=== PATIENT | male | born 1965 | race Caucasian/White ===

== ENCOUNTER 2018-07-29 06:33 | Inpatient (IN) ==
[2018-07-29 07:11] LABS: Basophils # 0.1 10*3/uL (0.0-0.2); Basophils % 0.3 % (0.0-0.8); Hematocrit 47.1 VOL% (42.0-52.0); Hemoglobin 16.8 GM/DL (14.0-18.0); Immature Granulocytes % 0.9 %; Immature Granulocytes Absolute 0.26 #; Lymphocytes # 1.1 10*3/uL (1.4-4.0); Lymphocytes % 3.8 % (21.2-54.2); Mean Corpuscular HGB Conc 35.7 GM/DL (32-36); Mean Corpuscular Hemoglobin 32 PG (27-34); Mean Corpuscular Volume 88.9 FL (87-102); Mean Platelet Volume 9.7 FL (9.6-12.0); Monocytes # 1.9 10*3/uL (0.11-0.8); Monocytes % 6.8 % (1.7-12.7); Neutrophils # 24.3 10*3/uL (1.4-7.4); Neutrophils % 88.2 % (38.7-73.9); Platelet Count 231 T/CUMM (130-400); Red Cell Distribution Width 12.5 % (9.3-17.3); White Blood Count 27.5 T/CUMM (4-12)
[2018-07-29 07:15] LABS: PT Patient Result 10.3 SECS; Partial Thromboplastin Time 25.2 SECS (0-40)
[2018-07-29] MEDS ORDERED: SODIUM CHLORIDE 0.9% 1,000 ML IV STA (07:26)
[2018-07-29 07:31] LABS: Albumin 3.8 G/DL (3.4-5.0); Bilirubin,Total 2.4 MG/DL (0.2-1.0); Calcium 8.8 MG/DL (8.5-10.1); Osmolality,Calculated 282.4 MOS/KG (273-304); Potassium 3.8 MMOL/L (3.5-5.1); Total Protein 7.9 G/DL (6.4-8.3)
[2018-07-29 07:32] LABS: Band Neutrophils 5 % (0-10); Hypochromasia 1+; Lactic Acid 2.4 MMOL/L (0.4-2.0); Lymphocytes 4 % (20-55); Platelet Estimate Adequate; Segmented Neutrophils 83 % (50-85); Total Cells Counted 100
[2018-07-29] MEDS ORDERED: SODIUM CHLORIDE 0.9% 3,550 ML IV ONE (08:08)
[2018-07-29] MEDS ORDERED: PIPERACILLIN/TAZOBACTAM 3,375 MG in SODIUM CHLORIDE 0.9% 100 ML IV SCH (08:30)
[2018-07-29 08:45] LABS: Apearance,Urine Slightly Hazy (Clear); Bilirubin,Urine Negative (Negative); Blood, Urine Negative (Negative); Glucose,Urine (UA) Negative (Negative); Ketones,Urine Negative (Negative); Mucus,Urine Many /LPF (Occasional); Nitrite,Urine Negative (Negative); Protein,Urine Negative; RBC,Urine <1 /HPF (0-4); Urine Color Amber (Yellow); Urine Specific Gravity 1.027 (1.001-1.035); Urine Urobilinogen < 2.0 EU/DL (0.2-1.0)
[2018-07-29] MEDS ORDERED: PROMETHAZINE 25 MG/1 ML VIAL IM PRN (09:48)
[2018-07-29] MEDS ORDERED: ACETAMINOPHEN 325 MG TABLET PO PRN (09:48)
[2018-07-29] MEDS ORDERED: ONDANSETRON 4 MG/2 ML VIAL IV PRN (09:48)
[2018-07-29] MEDS: SODIUM CHLORIDE 0.9% 1,000 ML IV SCH (13:08)
[2018-07-29] MEDS: VANCOMYCIN INJ 2,000 MG in SODIUM CHLORIDE 0.9% 500 ML IV SCH ×2 (13:09→22:08)
[2018-07-29] MEDS: PANTOPRAZOLE 40 MG TABLET PO SCH (15:43)
[2018-07-29] MEDS: cefTRIAXone 2,000 MG in SYRINGE 1 EACH IV SCH (15:43)
[2018-07-29] MEDS: AMPICILLIN INJ 2,000 MG in SODIUM CHLORIDE 0.9% 100 ML IV SCH (20:13)
[2018-07-29] MEDS: ENOXAPARIN 40 MG/0.4 ML SYRINGE SUBCUT SCH (20:16)
[2018-07-30] MEDS: cefTRIAXone 2,000 MG in SYRINGE 1 EACH IV SCH ×2 (03:28→14:53)
[2018-07-30] MEDS: AMPICILLIN INJ 2,000 MG in SODIUM CHLORIDE 0.9% 100 ML IV SCH ×3 (04:31→14:21)
[2018-07-30 05:43] LABS: Basophils # 0.1 10*3/uL (0.0-0.2); Basophils % 0.4 % (0.0-0.8); Eosinophils # 0.5 10*3/uL (0.0-0.87); Eosinophils % 2.7 % (0.00-10.9); Hematocrit 44.3 VOL% (42.0-52.0); Immature Granulocytes % 0.4 %; Immature Granulocytes Absolute 0.07 #; Lymphocytes # 2.5 10*3/uL (1.4-4.0); Mean Corpuscular HGB Conc 33.9 GM/DL (32-36); Mean Corpuscular Hemoglobin 32 PG (27-34); Mean Corpuscular Volume 93.9 FL (87-102); Mean Platelet Volume 9.5 FL (9.6-12.0); Monocytes # 1.1 10*3/uL (0.11-0.8); Monocytes % 6.7 % (1.7-12.7); Neutrophils # 12.3 10*3/uL (1.4-7.4); Neutrophils % 74.8 % (38.7-73.9); Platelet Count 175 T/CUMM (130-400); Red Blood Count 4.72 MC/CUMM (3.8-5.5); Red Cell Distribution Width 12.4 % (9.3-17.3); White Blood Count 16.5 T/CUMM (4-12)
[2018-07-30 05:58] LABS: Calcium 7.9 MG/DL (8.5-10.1); Osmolality,Calculated 280.1 MOS/KG (273-304); Potassium 4.2 MMOL/L (3.5-5.1)
[2018-07-30 06:01] LABS: Albumin 2.9 G/DL (3.4-5.0); Bilirubin,Total 1.2 MG/DL (0.2-1.0); Calcium 8.1 MG/DL (8.5-10.1); Osmolality,Calculated 282.1 MOS/KG (273-304); Potassium 4.2 MMOL/L (3.5-5.1); Risk Ratio 2.87; Total Protein 6.7 G/DL (6.4-8.3)
[2018-07-30] MEDS: VANCOMYCIN INJ 2,000 MG in SODIUM CHLORIDE 0.9% 500 ML IV SCH ×2 (06:51→15:07)
[2018-07-30] MEDS: SODIUM CHLORIDE 0.9% 1,000 ML IV SCH ×4 (06:54→19:00)
[2018-07-30 12:45] LABS: Appearance,CSF Clear; Lymphocytes,CSF 83 %; Monocytes,CSF 11 %; Neutrophils,CSF 6 %; Red Blood Cell,CSF < 1 C/CUMM; White Blood Cell,CSF 17 C/CUMM
[2018-07-30] MEDS: CHOLECALCIFEROL 1,000 UNIT TABLET PO SCH (14:52)
[2018-07-30] MEDS: FLUTICASONE 50 MCG NASAL SPRAY 16 GM BOTTLE BOTH NARES SCH (14:52)
[2018-07-30] MEDS: CETIRIZINE 10 MG TABLET PO SCH (14:53)
[2018-07-30] MEDS: MULTIVITAMIN (CENTRUM) TABLET PO SCH (14:53)
[2018-07-30] MEDS: PANTOPRAZOLE 40 MG TABLET PO SCH (14:53)
[2018-07-30] MEDS: MONTELUKAST 10 MG TABLET PO SCH ×2 (14:54→20:29)
[2018-07-30] MEDS: AMPICILLIN/SULBACTAM 3,000 MG in SODIUM CHLORIDE 0.9% 100 ML IV SCH ×2 (16:49→21:57)
[2018-07-30] MEDS: ACYCLOVIR INJ 1,250 MG in SODIUM CHLORIDE 0.9% 250 ML IV SCH (18:15)
[2018-07-30] MEDS: ACETAMINOPHEN/CODEINE 300-30 MG TABLET PO PRN (20:28)
[2018-07-30] MEDS: ENOXAPARIN 40 MG/0.4 ML SYRINGE SUBCUT SCH (20:29)
[2018-07-31] MEDS: ACYCLOVIR INJ 1,250 MG in SODIUM CHLORIDE 0.9% 250 ML IV SCH ×3 (01:33→16:27)
[2018-07-31] MEDS: AMPICILLIN/SULBACTAM 3,000 MG in SODIUM CHLORIDE 0.9% 100 ML IV SCH ×3 (04:13→21:24)
[2018-07-31 05:22] LABS: Basophils # 0.1 10*3/uL (0.0-0.2); Basophils % 0.5 % (0.0-0.8); Eosinophils # 0.8 10*3/uL (0.0-0.87); Eosinophils % 7.3 % (0.00-10.9); Hematocrit 39.8 VOL% (42.0-52.0); Hemoglobin 13.7 GM/DL (14.0-18.0); Immature Granulocytes % 0.3 %; Immature Granulocytes Absolute 0.03 #; Lymphocytes # 2.7 10*3/uL (1.4-4.0); Lymphocytes % 26.5 % (21.2-54.2); Mean Corpuscular HGB Conc 34.4 GM/DL (32-36); Mean Corpuscular Hemoglobin 32 PG (27-34); Mean Corpuscular Volume 91.7 FL (87-102); Mean Platelet Volume 10.4 FL (9.6-12.0); Monocytes % 9.6 % (1.7-12.7); Neutrophils # 5.7 10*3/uL (1.4-7.4); Neutrophils % 55.8 % (38.7-73.9); Platelet Count 174 T/CUMM (130-400); Red Blood Count 4.34 MC/CUMM (3.8-5.5); Red Cell Distribution Width 12.5 % (9.3-17.3); White Blood Count 10.2 T/CUMM (4-12)
[2018-07-31 05:53] LABS: Calcium 7.9 MG/DL (8.5-10.1); Osmolality,Calculated 286.7 MOS/KG (273-304); Potassium 4.3 MMOL/L (3.5-5.1)
[2018-07-31] MEDS: SODIUM CHLORIDE 0.9% 1,000 ML IV SCH ×2 (06:21→16:07)
[2018-07-31] MEDS: CETIRIZINE 10 MG TABLET PO SCH (08:34)
[2018-07-31] MEDS: MONTELUKAST 10 MG TABLET PO SCH ×2 (08:34→20:32)
[2018-07-31] MEDS: PANTOPRAZOLE 40 MG TABLET PO SCH (08:34)
[2018-07-31] MEDS: FLUTICASONE 50 MCG NASAL SPRAY 16 GM BOTTLE BOTH NARES SCH (08:34)
[2018-07-31] MEDS: MULTIVITAMIN (CENTRUM) TABLET PO SCH (08:34)
[2018-07-31] MEDS: CHOLECALCIFEROL 1,000 UNIT TABLET PO SCH (08:34)
[2018-07-31] MEDS ORDERED: KETOROLAC 30 MG/1 ML VIAL IV ONE (10:57)
[2018-07-31] MEDS ORDERED: METHOCARBAMOL 750 MG TABLET PO PRN (10:58)
[2018-07-31] MEDS: IBUPROFEN 800 MG TABLET PO SCH ×2 (11:15→20:31)
[2018-07-31] MEDS: ENOXAPARIN 40 MG/0.4 ML SYRINGE SUBCUT SCH (20:32)
[2018-08-01] MEDS: SODIUM CHLORIDE 0.9% 1,000 ML IV SCH ×3 (00:10→15:35)
[2018-08-01] MEDS: ACYCLOVIR INJ 1,250 MG in SODIUM CHLORIDE 0.9% 250 ML IV SCH ×3 (01:09→17:19)
[2018-08-01] MEDS: AMPICILLIN/SULBACTAM 3,000 MG in SODIUM CHLORIDE 0.9% 100 ML IV SCH ×4 (03:50→20:04)
[2018-08-01 06:07] LABS: Basophils # 0.1 10*3/uL (0.0-0.2); Basophils % 0.8 % (0.0-0.8); Eosinophils # 0.9 10*3/uL (0.0-0.87); Eosinophils % 11.9 % (0.00-10.9); Hematocrit 39.8 VOL% (42.0-52.0); Hemoglobin 13.7 GM/DL (14.0-18.0); Immature Granulocytes % 0.4 %; Immature Granulocytes Absolute 0.03 #; Lymphocytes # 2.3 10*3/uL (1.4-4.0); Lymphocytes % 30.4 % (21.2-54.2); Mean Corpuscular HGB Conc 34.4 GM/DL (32-36); Mean Corpuscular Hemoglobin 31 PG (27-34); Mean Corpuscular Volume 90.7 FL (87-102); Mean Platelet Volume 10.2 FL (9.6-12.0); Monocytes # 0.6 10*3/uL (0.11-0.8); Monocytes % 8.3 % (1.7-12.7); Neutrophils # 3.7 10*3/uL (1.4-7.4); Neutrophils % 48.2 % (38.7-73.9); Platelet Count 206 T/CUMM (130-400); Red Blood Count 4.39 MC/CUMM (3.8-5.5); Red Cell Distribution Width 12.3 % (9.3-17.3); White Blood Count 7.6 T/CUMM (4-12)
[2018-08-01 06:31] LABS: Calcium 7.9 MG/DL (8.5-10.1); Osmolality,Calculated 285.7 MOS/KG (273-304); Potassium 3.8 MMOL/L (3.5-5.1)
[2018-08-01 06:32] LABS: Anisocytosis Slight; Eosinophils 13 % (0-10); Lymphocytes 31 % (20-55); Macrocytosis Slight; Platelet Estimate Normal; Segmented Neutrophils 50 % (50-85); Total Cells Counted 100
[2018-08-01] MEDS: CHOLECALCIFEROL 1,000 UNIT TABLET PO SCH (08:01)
[2018-08-01] MEDS: CETIRIZINE 10 MG TABLET PO SCH (08:01)
[2018-08-01] MEDS: MONTELUKAST 10 MG TABLET PO SCH ×2 (08:01→20:05)
[2018-08-01] MEDS: MULTIVITAMIN (CENTRUM) TABLET PO SCH (08:01)
[2018-08-01] MEDS: IBUPROFEN 800 MG TABLET PO SCH ×2 (08:02→20:05)
[2018-08-01] MEDS: FLUTICASONE 50 MCG NASAL SPRAY 16 GM BOTTLE BOTH NARES SCH (08:02)
[2018-08-01] MEDS: PANTOPRAZOLE 40 MG TABLET PO SCH (08:02)
[2018-08-01] MEDS: ENOXAPARIN 40 MG/0.4 ML SYRINGE SUBCUT SCH (20:05)
[2018-08-02] MEDS: ACYCLOVIR INJ 1,250 MG in SODIUM CHLORIDE 0.9% 250 ML IV SCH ×3 (01:04→16:03)
[2018-08-02] MEDS: ACETAMINOPHEN/CODEINE 300-30 MG TABLET PO PRN ×2 (03:05→09:24)
[2018-08-02] MEDS: AMPICILLIN/SULBACTAM 3,000 MG in SODIUM CHLORIDE 0.9% 100 ML IV SCH ×3 (04:02→13:49)
[2018-08-02 05:52] LABS: Basophils # 0.1 10*3/uL (0.0-0.2); Basophils % 0.7 % (0.0-0.8); Eosinophils % 12.6 % (0.00-10.9); Hematocrit 41.8 VOL% (42.0-52.0); Hemoglobin 14.5 GM/DL (14.0-18.0); Immature Granulocytes % 0.4 %; Immature Granulocytes Absolute 0.03 #; Lymphocytes # 2.4 10*3/uL (1.4-4.0); Lymphocytes % 29.3 % (21.2-54.2); Mean Corpuscular HGB Conc 34.7 GM/DL (32-36); Mean Corpuscular Hemoglobin 31 PG (27-34); Mean Corpuscular Volume 90.1 FL (87-102); Mean Platelet Volume 9.7 FL (9.6-12.0); Monocytes # 0.7 10*3/uL (0.11-0.8); Monocytes % 8.2 % (1.7-12.7); Neutrophils % 48.8 % (38.7-73.9); Platelet Count 228 T/CUMM (130-400); Red Blood Count 4.64 MC/CUMM (3.8-5.5); Red Cell Distribution Width 12.3 % (9.3-17.3); White Blood Count 8.3 T/CUMM (4-12)
[2018-08-02 06:09] LABS: Albumin 2.8 G/DL (3.4-5.0); Bilirubin,Total 1.1 MG/DL (0.2-1.0); Calcium 8.3 MG/DL (8.5-10.1); Total Protein 6.4 G/DL (6.4-8.3)
[2018-08-02 06:15] LABS: Eosinophils 15 % (0-10); Hypochromasia 1+; Lymphocytes 25 % (20-55); Platelet Estimate Adequate; Segmented Neutrophils 55 % (50-85); Total Cells Counted 100
[2018-08-02] MEDS: IBUPROFEN 800 MG TABLET PO SCH ×2 (09:22→20:23)
[2018-08-02] MEDS: CETIRIZINE 10 MG TABLET PO SCH (09:22)
[2018-08-02] MEDS: MULTIVITAMIN (CENTRUM) TABLET PO SCH (09:23)
[2018-08-02] MEDS: PANTOPRAZOLE 40 MG TABLET PO SCH (09:23)
[2018-08-02] MEDS: MONTELUKAST 10 MG TABLET PO SCH ×2 (09:23→20:23)
[2018-08-02] MEDS: CHOLECALCIFEROL 1,000 UNIT TABLET PO SCH (09:23)
[2018-08-02] MEDS: FLUTICASONE 50 MCG NASAL SPRAY 16 GM BOTTLE BOTH NARES SCH (09:27)
[2018-08-02] MEDS: AMOXICILLIN/CLAV 875 MG TABLET PO SCH ×2 (14:05→20:23)
[2018-08-02] MEDS: SODIUM CHLORIDE 0.9% 1,000 ML IV SCH (20:22)
[2018-08-02] MEDS: ENOXAPARIN 40 MG/0.4 ML SYRINGE SUBCUT SCH (20:23)
[2018-08-03] MEDS: ACYCLOVIR INJ 1,250 MG in SODIUM CHLORIDE 0.9% 250 ML IV SCH ×2 (00:33→08:11)
[2018-08-03] MEDS: ACETAMINOPHEN/CODEINE 300-30 MG TABLET PO PRN (06:17)
[2018-08-03] MEDS: MONTELUKAST 10 MG TABLET PO SCH (08:11)
[2018-08-03] MEDS: CHOLECALCIFEROL 1,000 UNIT TABLET PO SCH (08:11)
[2018-08-03] MEDS: IBUPROFEN 800 MG TABLET PO SCH (08:11)
[2018-08-03] MEDS: CETIRIZINE 10 MG TABLET PO SCH (08:11)
[2018-08-03] MEDS: AMOXICILLIN/CLAV 875 MG TABLET PO SCH (08:11)
[2018-08-03] MEDS: PANTOPRAZOLE 40 MG TABLET PO SCH (08:11)
[2018-08-03] MEDS: MULTIVITAMIN (CENTRUM) TABLET PO SCH (08:11)
[2018-08-03] MEDS: FLUTICASONE 50 MCG NASAL SPRAY 16 GM BOTTLE BOTH NARES SCH (08:18)
[2018-08-03 12:23] VITALS: BP 128/74
[2018-08-04 18:31] LABS: West Nile Virus Ab, IgG, CSF Negative (Negative); West Nile Virus Ab, IgM, CSF Negative (Negative)
== END 2018-08-03 17:25 | disposition home or self-care (01) | DRG 871 ==
LOC: N.ED 06:33 → N.EDINP 10:27 → N.2W 11:50 → N.5E 13:03
PROVIDERS: ADMIT Internal Medicine; ATTEND Internal Medicine

== ENCOUNTER 2021-04-01 06:10 | Inpatient (IN) ==
[2021-04-01] MEDS ORDERED: MAGNESIUM SULF RIDER 2 GM/50 ML PREMIX IV PRN ×3 (06:35→17:10)
[2021-04-01] MEDS ORDERED: ASPIRIN 325 MG TABLET PO ONE (06:35)
[2021-04-01] MEDS ORDERED: POTASSIUM CHLORIDE RIDER 10 MEQ/100 ML PREMIX IV PRN ×3 (06:35→17:10)
[2021-04-01] MEDS ORDERED: diphenhydrAMINE CAP 50 MG CAPSULE PO ONE (06:35)
[2021-04-01] MEDS ORDERED: DIAZEPAM 5 MG TABLET PO ONE (06:35)
[2021-04-01] MEDS ORDERED: SIMETHICONE CHEW 125 MG TABLET PO PRN (07:15)
[2021-04-01] MEDS ORDERED: BISACODYL 5 MG TABLET PO PRN (07:15)
[2021-04-01] MEDS ORDERED: diphenhydrAMINE CAP 25 MG CAPSULE PO PRN (07:15)
[2021-04-01] MEDS ORDERED: ZALEPLON 5 MG CAPSULE PO PRN (07:15)
[2021-04-01] MEDS ORDERED: MAGNESIUM SULF RIDER 4 GM/100 ML PREMIX IV PRN (07:15)
[2021-04-01] MEDS ORDERED: ONDANSETRON 4 MG/2 ML VIAL IV PRN (07:15)
[2021-04-01] MEDS ORDERED: DOCUSATE SODIUM 100 MG CAPSULE PO PRN (07:15)
[2021-04-01] MEDS ORDERED: guaiFENesin/DM ER 600-30 MG TABLET PO PRN (07:15)
[2021-04-01] MEDS ORDERED: MORPHINE 4 MG/1 ML VIAL IV PRN (07:15)
[2021-04-01 07:25] LABS: Basophils # 0.1 10*3/uL (0.0-0.2); Basophils % 0.9 % (0.0-0.8); Eosinophils # 1.2 10*3/uL (0.0-0.87); Eosinophils % 14.5 % (0.00-10.9); Hematocrit 46.4 VOL% (42.0-52.0); Hemoglobin 15.7 GM/DL (14.0-18.0); Immature Granulocytes % 0.4 %; Immature Granulocytes Absolute 0.03 #; Lymphocytes # 2.3 10*3/uL (1.4-4.0); Lymphocytes % 26.9 % (21.2-54.2); Mean Corpuscular HGB Conc 33.8 GM/DL (32-36); Mean Corpuscular Volume 90.3 FL (87-102); Mean Platelet Volume 10.4 FL (9.6-12.0); Monocytes % 7.7 % (1.7-12.7); Neutrophils % 49.6 % (38.7-73.9); Platelet Count 228 T/CUMM (130-400); Red Blood Count 5.14 MC/CUMM (3.8-5.5); Red Cell Distribution Width 12.3 % (9.3-17.3); White Blood Count 8.4 T/CUMM (4-12)
[2021-04-01 07:36] LABS: PT Patient Result 11.4 SECS (10.5-12.0)
[2021-04-01 07:44] LABS: Calcium 7.5 MG/DL (8.5-10.1); Potassium 4.1 MMOL/L (3.5-5.1); Total Protein 6.8 G/DL (6.4-8.2)
[2021-04-01 07:45] LABS: Eosinophils 16 % (0-10); Lymphocytes 24 % (20-55); Platelet Estimate Adequate; Segmented Neutrophils 54 % (50-85); Total Cells Counted 100
[2021-04-01] MEDS ORDERED: methylPREDNISolone SOD SUC 40 MG/1 ML VIAL IV SCH (08:30)
[2021-04-01] MEDS ORDERED: PANTOPRAZOLE 40 MG TABLET PO SCH (09:00)
[2021-04-01] MEDS: methylPREDNISolone SOD SUC 40 MG/1 ML VIAL IV SCH ×2 (12:02→22:24)
[2021-04-01] MEDS: MONTELUKAST 10 MG TABLET PO SCH (12:03)
[2021-04-01] MEDS: ENOXAPARIN 40 MG/0.4 ML SYRINGE SUBCUT SCH (12:03)
[2021-04-01] MEDS: SODIUM CHLORIDE 0.9% 1,000 ML IV SCH (12:13)
[2021-04-01] MEDS ORDERED: ALBUTEROL/IPRATROPIUM 3 ML NEB RESP TX SCH (13:00)
[2021-04-01] MEDS: IPRATROPIUM 500 MCG/2.5 ML NEB RESP TX SCH ×2 (13:15→19:36)
[2021-04-01] MEDS: ACETAMINOPHEN 325 MG TABLET PO PRN (19:50)
[2021-04-01] MEDS: PANTOPRAZOLE 40 MG TABLET PO SCH (22:23)
[2021-04-02] MEDS: IPRATROPIUM 500 MCG/2.5 ML NEB RESP TX SCH ×4 (00:07→19:40)
[2021-04-02] MEDS: methylPREDNISolone SOD SUC 40 MG/1 ML VIAL IV SCH ×3 (04:05→20:13)
[2021-04-02 04:45] LABS: Calcium 8.7 MG/DL (8.5-10.1); Osmolality,Calculated 285.3 MOS/KG (273-304); Potassium 4.7 MMOL/L (3.5-5.1)
[2021-04-02 04:50] LABS: Calcium 8.9 MG/DL (8.5-10.1); Osmolality,Calculated 286.3 MOS/KG (273-304); Potassium 4.3 MMOL/L (3.5-5.1); VLDL CHOLESTEROL 16.4 MG/DL
[2021-04-02 06:52] LABS: Basophils % 0.2 % (0.0-0.8); Hematocrit 49.6 VOL% (42.0-52.0); Hemoglobin 16.9 GM/DL (14.0-18.0); Immature Granulocytes % 0.7 %; Immature Granulocytes Absolute 0.11 #; Lymphocytes # 1.4 10*3/uL (1.4-4.0); Lymphocytes % 8.8 % (21.2-54.2); Mean Corpuscular HGB Conc 34.1 GM/DL (32-36); Mean Corpuscular Volume 91.5 FL (87-102); Mean Platelet Volume 10.8 FL (9.6-12.0); Monocytes % 0.6 % (1.7-12.7); Neutrophils % 89.7 % (38.7-73.9); Platelet Count 289 T/CUMM (130-400); Red Blood Count 5.42 MC/CUMM (3.8-5.5); White Blood Count 15.4 T/CUMM (4-12)
[2021-04-02] MEDS ORDERED: ASPIRIN 325 MG TABLET PO ONE (09:00)
[2021-04-02] MEDS: SODIUM CHLORIDE 0.9% 1,000 ML IV SCH (09:02)
[2021-04-02] MEDS ORDERED: HEPARIN/NACL 0.9% 2 UNITS/ML 2,000 UNIT/1,000 ML BAG IV ONE (09:36)
[2021-04-02] MEDS ORDERED: LIDOCAINE 1% 20 ML VIAL ONE (09:36)
[2021-04-02] MEDS ORDERED: DIAZEPAM 5 MG TABLET PO ONE (10:00)
[2021-04-02] MEDS ORDERED: diphenhydrAMINE CAP 25 MG CAPSULE PO PRN (10:00)
[2021-04-02] MEDS ORDERED: MIDAZOLAM 2 MG/2 ML VIAL ONE (10:22)
[2021-04-02] MEDS ORDERED: fentaNYL 100 MCG/2 ML VIAL ONE (10:22)
[2021-04-02] MEDS ORDERED: NITROGLYCERIN SL 0.4 MG TABLET SL PRN (11:50)
[2021-04-02] MEDS ORDERED: ACETAMINOPHEN/CODEINE 300-30 MG TABLET PO PRN (11:50)
[2021-04-02] MEDS: ENOXAPARIN 40 MG/0.4 ML SYRINGE SUBCUT SCH (12:01)
[2021-04-02] MEDS: ACETAMINOPHEN 325 MG TABLET PO PRN (12:01)
[2021-04-02] MEDS: PANTOPRAZOLE 40 MG TABLET PO SCH ×2 (12:01→20:12)
[2021-04-02] MEDS: MONTELUKAST 10 MG TABLET PO SCH (12:01)
[2021-04-03] MEDS: IPRATROPIUM 500 MCG/2.5 ML NEB RESP TX SCH ×3 (01:00→07:00)
[2021-04-03] MEDS: methylPREDNISolone SOD SUC 40 MG/1 ML VIAL IV SCH ×2 (04:25→12:39)
[2021-04-03 06:34] LABS: Basophils % 0.1 % (0.0-0.8); Hematocrit 47.5 VOL% (42.0-52.0); Hemoglobin 16.1 GM/DL (14.0-18.0); Immature Granulocytes % 1.1 %; Immature Granulocytes Absolute 0.27 #; Lymphocytes # 1.4 10*3/uL (1.4-4.0); Lymphocytes % 5.7 % (21.2-54.2); Mean Corpuscular HGB Conc 33.9 GM/DL (32-36); Mean Corpuscular Volume 90.6 FL (87-102); Mean Platelet Volume 10.2 FL (9.6-12.0); Monocytes % 2.3 % (1.7-12.7); Neutrophils % 90.8 % (38.7-73.9); Platelet Count 266 T/CUMM (130-400); Red Blood Count 5.24 MC/CUMM (3.8-5.5); Red Cell Distribution Width 12.2 % (9.3-17.3); White Blood Count 24.9 T/CUMM (4-12)
[2021-04-03 06:57] LABS: Lymphocytes 7 % (20-55); Platelet Estimate Adequate; Segmented Neutrophils 87 % (50-85); Total Cells Counted 100
[2021-04-03 07:07] LABS: Calcium 8.5 MG/DL (8.5-10.1); Potassium 3.9 MMOL/L (3.5-5.1)
[2021-04-03] MEDS: PANTOPRAZOLE 40 MG TABLET PO SCH (08:53)
[2021-04-03] MEDS: MONTELUKAST 10 MG TABLET PO SCH (08:53)
[2021-04-03] MEDS: SODIUM CHLORIDE 0.9% 1,000 ML IV SCH (09:59)
[2021-04-03] MEDS: ENOXAPARIN 40 MG/0.4 ML SYRINGE SUBCUT SCH (11:55)
[2021-04-03 12:16] VITALS: BP 124/73
== END 2021-04-03 13:24 | disposition home or self-care (01) | DRG 203 ==
LOC: N.CL 06:10 → N.TELEN 07:14 → N.TELES 04-03 08:34
PROVIDERS: ADMIT Internal Medicine Cardiovascular Disease; ATTEND Internal Medicine Cardiovascular Disease